=== PATIENT | female | born 1955 | race Caucasian/White ===

== ENCOUNTER → 2022-01-02 | Outpatient (CLI) | payer MEDICARE ==
[2021-11-29 09:18] VITALS: BP 144/79
[~2022-01-02] MED LIST: ASPI-630 PO; ATOR20TA58 PO; CALC-31 PO; HYDR-2145 PO; LISI20TA18 PO; MULT-245 PO; POTA20TA4 PO
--- NOTE | 2022-01-02 13:33 | CARD ---
MR#: [id number] Date of Study: 01/02/2022 Ordering Physician: SHARA FLORIAN, Referring Physician: SHARA FLORIAN, Tech: Kam Cutler [facility] APPROVED REPORT EXAM: Two-dimensional and M-mode echocardiogram with Doppler and color Doppler. Other Information Quality : AverageHR: 62bpm Rhythm : NSRAPC's INDICATION Palpitations RISK FACTORS Hypertension Obesity Hyperlipidemia 2D DIMENSIONS Left Atrium(2D)2.7 (1.6-4.0cm)IVSd1.0 (0.7-1.1cm) Aortic Root(2D)2.9 (2.0-3.7cm)LVDd4.1 (3.9-5.9cm) LVOT Diameter1.8 (1.8-2.4cm)PWd0.9 (0.7-1.1cm) LA Ximxfp91 (18-58mL)LVDs2.3 (2.5-4.0cm) FS (%) 43.5 %SV56.4 ml LVEF(%)75.2 (>50%) Aortic Valve AoV Peak Subhash.206.9cm/sAoV VTI40.6cm AO Peak GR.17.1mmHgLVOT Peak Subhash.172.3cm/s LVOT VTI 35.19cmAO Mean GR.7mmHg ABEBE (VMAX)2.86lx4XAC (VTI)2.26cm2 Mitral Valve MV E Mjnnnvpu505.7cm/sMV E Peak Gr.5mmHg MV DECEL TEZU596rrIP A Yqfsjeil39.4cm/s MV E Mean Gr.2mmHgE/A Ratio1.2 Pulmonary Valve PV Peak Jqggnkfk505.0cm/sPV Peak Grad.7mmHg Tricuspid Valve TR P. Lrpubsll171pi/sTR Peak Gr.35mmHg Pulmonary Vein S1 Deqwobpj39.9cm/sD2 Svqlgptf54.0cm/s LEFT VENTRICLE The left ventricle is normal size. There is normal left ventricular wall thickness. The left ventricu lar systolic function is normal. The ejection fraction is 55-60%. There is normal LV segmental wall m otion. No left ventricle thrombus noted on this study. There is no ventricular septal defect visualiz ed. There is no left ventricular aneurysm. There is no mass noted in the left ventricle. RIGHT VENTRICLE The right ventricle is normal size. There is normal right ventricular wall thickness. The right ventr icular systolic function is normal. ATRIA The left atrium is borderline dilated. The right atrium size is normal. The interatrial septum is int act with no evidence for an atrial septal defect or patent foramen ovale as noted on 2-D or Doppler i maging. AORTIC VALVE The aortic valve is thickened but opens well. Doppler and Color Flow revealed no significant aortic r egurgitation. There is no significant aortic valvular stenosis. There is no aortic valvular vegetatio n. MITRAL VALVE The mitral valve is normal in structure and function. There is no evidence of mitral valve prolapse. There is no mitral valve stenosis. Doppler and Color-flow revealed trace mitral regurgitation. TRICUSPID VALVE The tricuspid valve is normal in structure and function. Doppler and Color Flow revealed trace tricus pid regurgitation. There is no tricuspid valve prolapse or vegetation. There is no tricuspid valve st enosis. PULMONIC VALVE The pulmonary valve is normal in structure and function. Doppler and Color Flow revealed no pulmonic valvular regurgitation. There is no pulmonic valvular stenosis. GREAT VESSELS The aortic root is normal in size. The ascending aorta is normal in size. The pulmonary artery is nor mal. The IVC is normal in size and collapses >50% with inspiration. PERICARDIAL EFFUSION There is no pleural effusion. There is no evidence of significant pericardial effusion. Critical Notification Critical Value: No <Conclusion> The left ventricular systolic function is normal. The ejection fraction is 55-60%. There is normal LV segmental wall motion. Trace mitral regurgitation. Trace tricuspid regurgitation. There is no evidence of significant pericardial effusion. Signed by : Ehsan Rajan, Electronically Approved : 01/02/2022 13:32:23
== END ==
LOC: ECHO 10:42
PROVIDERS: ATTEND Internal Medicine Cardiovascular Disease
DX: I35.1 Nonrheumatic aortic (valve) insufficiency (principal); R07.9 Chest pain, unspecified
CPT/HCPCS: 93306